=== PATIENT | female | born 1960 | race Caucasian/White ===

== ENCOUNTER 2016-05-18 08:14 | Emergency (ER) | payer OTHER ==
[~2016-05-18] VITALS: Ht 154.9 cm; Wt 50.8 kg
[~2016-05-18 08:14] MED LIST: GLIP10TA11 PO; METF10002 PO; SERT25TA PO; SITA50TA PO
[2016-05-18 08:22] VITALS: BP 122/69
[2016-05-18] MEDS ORDERED: HYDROCODONE/APAP 5/325MG 1 EACH TABLET ONE (08:55)
[2016-05-18] MEDS ORDERED: KETOROLAC TROMETHAMINE 15 MG/ML VIAL ONE (08:55)
[2016-05-18] MEDS: HYDROCODONE/APAP 5/325MG 1 EACH TABLET PO ONE (09:03)
[2016-05-18] MEDS: KETOROLAC TROMETHAMINE INJ 30 MG/ML VIAL IM ONE (09:03)
== END 2016-05-18 10:13 | disposition home or self-care (01) ==
LOC: ER 08:17
DX: S20.212A Contusion of left front wall of thorax, initial encounter (principal); E11.9 Type 2 diabetes mellitus without complications; W19.XXXA Unspecified fall, initial encounter; Y93.89 Activity, other specified; Y92.89 Other specified places as the place of occurrence of the external cause; Y99.8 Other external cause status
CPT/HCPCS: 71020-TC; A4606; J1885; Z7610

== ENCOUNTER 2016-07-14 15:07 | Emergency (ER) | payer OTHER ==
[~2016-07-14] VITALS: Ht 152.4 cm; Wt 46.3 kg
--- NOTE | 2016-07-14 15:17 | NUR ---
PT BIB RA C/O R KNEE PAIN AND PAIN TO R CHEEK S/P GLF AT [place]. DENIES ANY HEADACHE, NECK PAIN. PLACED ON MONITOR . VSS. AWAITING MD ORDER.
[2016-07-14 15:52] LABS: BASOPHILS % (AUTO) 0.3 % (0.0-2.0); EOSINOPHILS % (AUTO) 0.7 % (0.0-6.0); HEMATOCRIT 40 % (33-45); HEMOGLOBIN 13.1 g/dL (11.5-14.8); LYMPHOCYTES # (AUTO) 0.7 /CMM (0.8-4.8); LYMPHOCYTES % (AUTO) 10.7 % (20.0-44.0); MEAN CORPUSCULAR HEMOGLOBIN 28 PG (26.0-33.0); MEAN CORPUSCULAR HGB CONC 33 g/dl (31.0-36.0); MEAN CORPUSCULAR VOLUME 83 fL (82-100); MONOCYTES # (AUTO) 0.3 /CMM (0.1-1.30); MONOCYTES % (AUTO) 4.2 % (2.0-12.0); NEUTROPHILS # (AUTO) 5.7 /CMM (1.8-8.9); NEUTROPHILS % (AUTO) 84.1 % (43.0-81.0); PLATELET COUNT (AUTO) 220 /CMM (150-450); RDW COEFFICIENT OF VARIATION 12.9 (11.5-15.0); RED BLOOD CELL COUNT(AUTO) 4.79 MIL/uL (4.0-5.2); WHITE BLOOD COUNT (AUTO) 6.7 K/uL (4.3-11.0)
[2016-07-14] MEDS ORDERED: IBUPROFEN 400 MG TABLET ONE (15:54)
[2016-07-14] MEDS ORDERED: IBUPROFEN 400 MG TABLET PO ONE (16:00)
[2016-07-14 16:03] LABS: CALCIUM, SERUM 9.7 mg/dL (8.5-10.1); CREATININE 1.2 mg/dL (0.6-1.3); POTASSIUM 4.4 mmol/L (3.5-5.1)
--- NOTE | 2016-07-14 16:30 | NUR ---
URINE SAMPLE COLLECTED SENT TO LAB
[2016-07-14 16:41] LABS: APPEARANCE,URINE Clear (CLEAR); BILIRUBIN,URINE Negative (NEGATIVE); BLOOD, URINE Moderate Ery/uL (NEGATIVE); COLOR,URINE Yellow (YELLOW); KETONES,URINE Trace (NEGATIVE); LEUKOCYTE ESTERASE ,URINE Small (NEGATIVE); NITRITE, URINE Positive (NEGATIVE); PROTEIN,URINE 100 mg/dl (NEGATIVE)
[2016-07-14 16:42] LABS: UGLUCOSE 500 MG/DL mg/dL (NEGATIVE)
--- NOTE | 2016-07-14 16:49 | NUR ---
PT TAKEN TO CT VIA WHEELCHAIR
[2016-07-14 16:55] LABS: ADD URINE CULTURE YES; SQUAMOUS EPITHELIAL CELL,UR Few /HPF (None Seen)
[2016-07-14 16:57] LABS: BACTERIA,URINE 2+ /HPF (None Seen); WBC,URINE 21-50 /HPF (0-3)
[2016-07-14] MEDS ORDERED: IV NS 0.9% 500 ML BAG IV ONE ×2 (17:00→17:30)
[2016-07-14] MEDS ORDERED: IV SET PRIMARY PUMP SET 1 EA INFUS.SET MC ONE ×2 (17:00→17:38)
[2016-07-14] MEDS ORDERED: IV NS 0.9% 500 ML IV ONE ×2 (17:00→17:37)
--- NOTE | 2016-07-14 17:26 | NUR ---
CALLED [facility] DUE TO PATIENT BEING INSURANCE BEING CAPITATED, NO ANSWER.
[2016-07-14] MEDS ORDERED: CEFTRIAXONE 1GM BAG (ER ONLY) 50 ML IV ONE ×2 (17:30→17:37)
[2016-07-14] MEDS ORDERED: ONDANSETRON HCL/PF 4 MG/2 ML VIAL IV ONE (17:30)
[2016-07-14] MEDS ORDERED: ONDANSETRON HCL/PF 4 MG/2 ML VIAL ONE (17:37)
--- NOTE | 2016-07-14 18:03 | NUR ---
CALLED INSURANCE AFTER HOUR AND SPOKE WITH SILVIA AND SHE WILL PAGE BLOW TORCH BURNER FOR AUTH# TO ADMIT HERE
--- NOTE | 2016-07-14 18:05 | NUR ---
SPOKE WITH DELROY FROM [facility] SHE STATES SHE WILL PAGE RONNIE FROM [facility] IF HE DOES NOT CALL BACK IN TIMELY MANNER SHE WILL PROVIDE US WITH AN AUTHORIZATION NUMBER FOR PATIENT TO BE ADMITTED HERE
[2016-07-14 18:37] VITALS: BP 110/61
--- NOTE | 2016-07-14 18:49 | NUR ---
DR TONEY FROM [facility] ACCEPTED PATIENT.
--- NOTE | 2016-07-14 19:00 | NUR ---
RECEIVED A CALL FROM [employer], I WAS INSTRUCTED TO FAX [facility] FACESHEET AND CHART
--- NOTE | 2016-07-14 19:04 | NUR ---
FAXED FACESHEET AND CHART TO [phone].
--- NOTE | 2016-07-14 19:17 | NUR ---
REPORT GIVEN TO KATHI COLLIER
--- NOTE | 2016-07-14 19:28 | NUR ---
SPOKE TO JULIO BATISTA/NURSING SUP AT [facility].
--- NOTE | 2016-07-14 19:38 | NUR ---
PATIENT GOING TO [facility], [facility]. ROOM ASSIGNMENT WILL BE GIVEN AT THE MAIN ADMITTING. NUMBER FOR REPORT EXT [phone].
--- NOTE | 2016-07-14 19:39 | NUR ---
CALLED [facility] FOR TRANSPORTATION GOING TO [facility] ETA [phone]
--- NOTE | 2016-07-14 19:40 | NUR ---
AUTHORIZATION FOR TRANSFER # [id number]
--- NOTE | 2016-07-14 20:11 | NUR ---
CALLING REPORT TO JULIO CHENG AT [facility].
--- NOTE | 2016-07-14 20:22 | NUR ---
REPORT GIVEN TO JULIO CHENG AT [facility].
--- NOTE | 2016-07-14 20:41 | NUR ---
NEW ETA FOR [facility] IS [phone]
--- NOTE | 2016-07-14 21:11 | NUR ---
[facility] ARRIVED. REPORT AND COPY OF ENTIRE CHART GIVEN TO EMT. DISK OF IMAGES GIVEN. Patient BEING TRANSFERED in stable condition.
== END 2016-07-14 21:12 ==
LOC: ER 15:08
DX: R26.9 Unspecified abnormalities of gait and mobility (principal); S00.83XA Contusion of other part of head, initial encounter; W18.30XA Fall on same level, unspecified, initial encounter; Y93.89 Activity, other specified; Y92.89 Other specified places as the place of occurrence of the external cause; Y99.8 Other external cause status; R27.0 Ataxia, unspecified; Z86.73 Personal history of transient ischemic attack (TIA), and cerebral infarction without residual deficits; E11.9 Type 2 diabetes mellitus without complications; F32.9 Major depressive disorder, single episode, unspecified
CPT/HCPCS: 36415; 70450; 70486; 71010; 80048; 81001; 85025; 87077; 87081; 87086; 87186; 93005; 96365; 96375; 99285; A4606; J0696; J2405; J7040 ×2; Z7610; 81000-TC

== ENCOUNTER 2017-02-02 18:42 | Emergency (ER) | payer OTHER ==
[~2017-02-02] VITALS: Ht 157.5 cm; Wt 49.9 kg
[2017-02-02 18:45] VITALS: BP 109/63
== END 2017-02-02 19:24 | disposition home or self-care (01) ==
LOC: ER 18:45
DX: H11.32 Conjunctival hemorrhage, left eye (principal); E11.9 Type 2 diabetes mellitus without complications; Z79.84 Long term (current) use of oral hypoglycemic drugs
CPT/HCPCS: 99282; A4606; Z7610

== ENCOUNTER 2017-12-14 15:10 | Emergency (ER) | payer OTHER ==
[~2017-12-14] VITALS: Ht 157.5 cm; Wt 47.2 kg
[~2017-12-14 15:10] MED LIST changes: -METF10002 PO; +METF10004 PO
--- NOTE | 2017-12-14 15:40 | NUR ---
PT CAME IN WITH REPORTS OF S/P FALL SUNDAY NIGHT C/O R ARM PAIN, WAS TREATED BY ANOTHER HOSP. SHE'S ON A SHOULDER SLING THAT DOES NOT LOOK INTACT. C/O PAIN. VSS. SAFETY AND COMFORT MEASURES PROVIDED. WILL MONITOR.
[2017-12-14] MEDS ORDERED: HYDROCODONE/APAP 5/325MG 1 EACH TABLET PO ONE (16:00)
[2017-12-14] MEDS ORDERED: HYDROCODONE/APAP 5/325MG 1 EACH TABLET ONE (16:09)
--- NOTE | 2017-12-14 17:45 | NUR ---
CALLED PT'S SON FOR COAGULATING OPERATOR, NO ANSWER, LEFT A VOICEMAIL.
--- NOTE | 2017-12-14 18:15 | NUR ---
Patient discharged to home in stable condition. Written and verbal after care instructions given. Patient verbalizes understanding of instruction.
[2017-12-14 18:48] VITALS: BP 121/69
== END 2017-12-14 18:49 | disposition home or self-care (01) ==
LOC: ER 15:11
DX: S42.401A Unspecified fracture of lower end of right humerus, initial encounter for closed fracture (principal); S20.212A Contusion of left front wall of thorax, initial encounter; E11.9 Type 2 diabetes mellitus without complications; F32.9 Major depressive disorder, single episode, unspecified; Z98.49 Cataract extraction status, unspecified eye; Z60.2 Problems related to living alone; W18.39XA Other fall on same level, initial encounter; Y93.89 Activity, other specified; Y92.099 Unspecified place in other non-institutional residence as the place of occurrence of the external cause; Y99.8 Other external cause status
CPT/HCPCS: 29105; 71100; 99284; A4606; Z7610

== ENCOUNTER → 2018-03-12 | Emergency (ER) | payer OTHER ==
[~2018-03-12] VITALS: Ht 157.5 cm; Wt 47.6 kg
[~2018-03-12] MED LIST changes: +IBUPROFEN 400 MG TABLET ONE; +IBUPROFEN 400 MG TABLET PO ONE; +IV NS 0.9% 1,000 ML BAG IV ONE; +METF-442 PO; -METF10004 PO; +TRAMADOL HCL 50 MG TABLET ONE; +TRAMADOL HCL 50 MG TABLET PO ONE
--- NOTE | 2018-03-12 13:38 | NUR ---
PT WALKED INTO EMERGENCY ROOM FOR RIGHT ARM DISCOMFORT PT CANNOT MOVE ARM ABOVE HEAD ARM ID POSITIVE FOR MPTION, CIRCULATION AND SENSATION PT ALERT WITH ORIENTATION X 4 WILL CONTINUE TO MONITOR.
[2018-03-12 14:54] LABS: BASOPHILS % (AUTO) 0.7 % (0.0-2.0); EOSINOPHILS % (AUTO) 1.1 % (0.0-6.0); HEMATOCRIT 41 % (33-45); HEMOGLOBIN 13.5 g/dL (11.5-14.8); LYMPHOCYTES % (AUTO) 16.7 % (20.0-44.0); MEAN CORPUSCULAR HGB CONC 33 g/dl (31.0-36.0); MEAN CORPUSCULAR VOLUME 84 fL (82-100); MONOCYTES # (AUTO) 0.5 /CMM (0.1-1.30); NEUTROPHILS # (AUTO) 4.2 /CMM (1.8-8.9); NEUTROPHILS % (AUTO) 73.5 % (43.0-81.0); PLATELET COUNT (AUTO) 209 /CMM (150-450); RED BLOOD CELL COUNT(AUTO) 4.83 MIL/uL (4.0-5.2); WHITE BLOOD COUNT (AUTO) 5.7 K/uL (4.3-11.0)
[2018-03-12 15:13] LABS: CALCIUM, SERUM 9.3 mg/dL (8.5-10.1); CARBON DIOXIDE 27 mmol/L (21-32); CHLORIDE 100 mmol/L (98-107); CREATININE 0.8 mg/dL (0.6-1.3); GLUCOSE 103 mg/dL (74-106); POTASSIUM 4.2 mmol/L (3.5-5.1); SODIUM SERUM 138 mmol/L (136-145); UREA NITROGEN, BLOOD 15 mg/dL (7-18)
[2018-03-12 15:19] LABS: ALANINE AMINOTRANSFERASE 16 U/L (12-78); ALBUMIN 3.8 g/dL (3.4-5.0); ALKALINE PHOSPHATASE 63 U/L (46-116); ASPARTATE AMINOTRANSFERASE 19 U/L (15-37); BILIRUBIN,TOTAL 0.5 mg/dL (0.2-1.0); TOTAL PROTEIN, SERUM 7.3 g/dL (6.4-8.2)
--- NOTE | 2018-03-12 15:48 | NUR ---
EKG DONE PIV STARTED FLUIDS GIVEN
[2018-03-12 17:22] VITALS: BP 104/56
--- NOTE | 2018-03-12 17:23 | NUR ---
PT LEFT BY TAXIS LEFT SHOULDER FRACTURE SLING AND PIV REMOVED WITH TIP INTACT ACI AND PRESCRIPTION GIVEN PT TO FOLLOW UP WITH GEM EXPERT
== END | disposition home or self-care (01) ==
LOC: ER 12:57
DX: S42.491A Other displaced fracture of lower end of right humerus, initial encounter for closed fracture (principal); R07.89 Other chest pain; R51 Headache; E11.9 Type 2 diabetes mellitus without complications; Z60.2 Problems related to living alone; W18.39XA Other fall on same level, initial encounter; Y93.89 Activity, other specified; Y92.89 Other specified places as the place of occurrence of the external cause; Y99.8 Other external cause status
CPT/HCPCS: 29105; 36415; 70450; 71045; 73080; 80053; 84484; 85025; 85730; 99284; A4606; J7030; Z7610